=== PATIENT | female | born 1985 | race Caucasian/White ===

== ENCOUNTER 2019-12-06 16:09 | Emergency (ER) | payer OTHER ==
[~2019-12-06] VITALS: Ht 162.6 cm; Wt 50.3 kg
--- NOTE | 2019-12-06 16:09 | NUR ---
PT [facility]IB[facility] 89 AND [employer] C/O METH OD. PT IS AAOX2, NOT IN RESPIRATORY DISTRESS, HOOKED TO HEAD OF DIGITAL ADVERTISING & INTEGRATION, KEPT RESTED AND COMFORTABLE. WILL CONTINUE TO MONITOR.
[2019-12-06] MEDS ORDERED: LORAZEPAM 1 MG TABLET ONE ×2 (16:25→17:42)
--- NOTE | 2019-12-06 16:25 | NUR ---
SEEN AND EXAMINED BY NGOZI AYALA NP.
[2019-12-06] MEDS ORDERED: OLANZAPINE 5 MG TABLET ONE (16:30)
[2019-12-06] MEDS ORDERED: OLANZAPINE 5 MG TABLET PO ONE (16:30)
[2019-12-06] MEDS ORDERED: LORAZEPAM 1 MG TABLET PO ONE ×2 (16:30→18:00)
--- NOTE | 2019-12-06 16:34 | NUR ---
ER PHLEB AT BEDSIDE FOR BLOOD DRAW.
--- NOTE | 2019-12-06 16:50 | NUR ---
URINE SPECIMEN COLLECTED AND SENT TO LAB.
[2019-12-06 16:53] LABS: BASOPHILS % (AUTO) 0.2 % (0.0-2.0); EOSINOPHILS % (AUTO) 0.7 % (0.0-6.0); HEMATOCRIT 44 % (33-45); HEMOGLOBIN 14.2 g/dL (11.5-14.8); LYMPHOCYTES # (AUTO) 2.2 /CMM (0.8-4.8); LYMPHOCYTES % (AUTO) 20.7 % (20.0-44.0); MEAN CORPUSCULAR HGB CONC 33 g/dl (31.0-36.0); MEAN CORPUSCULAR VOLUME 88 fL (82-100); MONOCYTES # (AUTO) 1.1 /CMM (0.1-1.30); MONOCYTES % (AUTO) 10.1 % (2.0-12.0); NEUTROPHILS # (AUTO) 7.2 /CMM (1.8-8.9); NEUTROPHILS % (AUTO) 68.3 % (43.0-81.0); PLATELET COUNT (AUTO) 332 /CMM (150-450); RED BLOOD CELL COUNT(AUTO) 4.94 MIL/uL (4.0-5.2); WHITE BLOOD COUNT (AUTO) 10.5 K/uL (4.3-11.0)
[2019-12-06 17:03] LABS: APPEARANCE,URINE Cloudy (CLEAR); BILIRUBIN,URINE SMALL (NEGATIVE); BLOOD, URINE Moderate Ery/uL (NEGATIVE); COLOR,URINE Amber (YELLOW); KETONES,URINE Trace (NEGATIVE); LEUKOCYTE ESTERASE ,URINE Small (NEGATIVE); NITRITE, URINE Positive (NEGATIVE); PH,URINE 5.5 (5.0-8.0); PROTEIN,URINE 30 mg/dl (NEGATIVE); UGLUCOSE Negative (NEGATIVE); UROBILINOGEN,URINE 0.2 EU/dL (0.2)
[2019-12-06 17:06] LABS: ALANINE AMINOTRANSFERASE 16 U/L (12-78); ALBUMIN 4.2 g/dL (3.4-5.0); ALCOHOL, BLOOD < 3 mg/dL (0-0); ALKALINE PHOSPHATASE 60 U/L (46-116); ASPARTATE AMINOTRANSFERASE 15 U/L (15-37); BILIRUBIN,DIRECT 0.2 mg/dL (0.0-0.2); BILIRUBIN,TOTAL 0.7 mg/dL (0.2-1.0); CALCIUM, SERUM 9.5 mg/dL (8.5-10.1); CARBON DIOXIDE 24 mmol/L (21-32); CHLORIDE 101 mmol/L (98-107); CREATININE 0.9 mg/dL (0.6-1.3); GLUCOSE 94 mg/dL (74-106); POTASSIUM 3.6 mmol/L (3.5-5.1); SALICYLATE 0.7 mg/dL (2.8-20.0); SODIUM SERUM 136 mmol/L (136-145); TOTAL PROTEIN, SERUM 8.1 g/dL (6.4-8.2); UREA NITROGEN, BLOOD 18 mg/dL (7-18)
[2019-12-06 17:07] LABS: ACETAMINOPHEN < 2 ug/ml (10-30)
[2019-12-06 17:18] LABS: BACTERIA,URINE Many /HPF (None Seen); SQUAMOUS EPITHELIAL CELL,UR Few /HPF (None Seen)
[2019-12-06] MEDS ORDERED: CEPHALEXIN MONOHYDRATE 500 MG CAPSULE PO ONE ×2 (17:30→17:35)
--- NOTE | 2019-12-06 19:31 | NUR ---
PATIENT IS AWAKE. TALKING TO SELF. AAOX4. NO SOB. BREATHING EVENLY AND UNLABORED ON ROOM AIR. CONNECTED TO THE MONITOR. SITTER AT BEDSIDE.
[2019-12-06] MEDS ORDERED: LORAZEPAM INJ 2 MG/ML VIAL ONE (21:02)
[2019-12-06] MEDS ORDERED: OLANZAPINE 10 MG VIAL IM ONE ×2 (21:03→21:30)
[2019-12-06] MEDS ORDERED: LORAZEPAM INJ 2 MG/ML VIAL IM ONE (21:30)
[2019-12-07] MEDS ORDERED: ACETAMINOPHEN 325 MG TABLET PO PRN
[2019-12-07] MEDS ORDERED: ONDANSETRON HCL/PF 4 MG/2 ML VIAL IVP PRN
[2019-12-07] MEDS ORDERED: MAGNESIUM HYDROXIDE 30 ML UDC PO PRN
[2019-12-07] MEDS ORDERED: MAG HYDROX/AL HYDROX/SIMETH 30 ML UDC PO PRN
[2019-12-07] MEDS ORDERED: Z GUARD REMEDY 2 OZ OINT TP PRN
--- NOTE | 2019-12-07 01:27 | NUR ---
PATIENT IS SLEEPING. EASILY AROUSABLE THROUGH TACTILE AND VERBAL STIMULI. CONNECTED TO THE MONITOR. BREATHING EVENLY AND UNLABORED ON ROOM AIR. SITTER AT BEDSIDE.
[2019-12-07] MEDS ORDERED: IV NS 0.9% 1,000 ML IV PRN ×2 (01:40)
--- NOTE | 2019-12-07 04:22 | NUR ---
PATIENT STATES, "I WANT TO LEAVE". PATIENT IS AMBULATORY WITH A STEADY GAIT. PATIENT DENIES SUICIDAL IDEATION AND HOMICIDAL IDEATION. PATIENT STATES, "I DIDN'T TAKE ENOUGH DRUGS".
--- NOTE | 2019-12-07 04:23 | NUR ---
Patient discharged to home in stable condition. Written and verbal after care instructions given. Patient verbalizes understanding of instruction.
[2019-12-07 05:11] VITALS: BP 118/69
[2019-12-07] MEDS ORDERED: PANTOPRAZOLE 40 MG TABLET.DR PO SCH (07:30)
[2019-12-07] MEDS ORDERED: CEPHALEXIN MONOHYDRATE 500 MG CAPSULE PO SCH (09:00)
== END 2019-12-07 05:12 | disposition home or self-care (01) ==
LOC: EDUNIT# 16:09 → EDBD 16:14 → ER 16:14
DX: F15.10 Other stimulant abuse, uncomplicated (principal); N39.0 Urinary tract infection, site not specified; R00.0 Tachycardia, unspecified; R41.82 Altered mental status, unspecified
CPT/HCPCS: 36415; 80048; 80076; 80305; 80307; 80329; 81001; 84703; 85025; 87077; 87086; 87186; 93005; 96372 ×2; 99285; G0480; J2060; J3490; 81000-TC

== ENCOUNTER 2020-12-18 05:39 | Emergency (ER) | payer SELFPAY ==
[~2020-12-18] VITALS: Ht 165.1 cm; Wt 59.0 kg
[2020-12-18 06:46] VITALS: BP 134/82
--- NOTE | 2020-12-18 06:47 | NUR ---
URINE SENT TO LAB
[2020-12-18] MEDS ORDERED: IV NS 0.9% 1,000 ML BAG IV ONE (07:00)
[2020-12-18] MEDS ORDERED: ONDANSETRON HCL/PF 4 MG/2 ML VIAL IVP ONE (07:00)
[2020-12-18] MEDS ORDERED: LORAZEPAM INJ 2 MG/ML VIAL IV ONE (07:00)
--- NOTE | 2020-12-18 07:02 | NUR ---
Patient walked in to ED, c/o abd. pain, "states I ate a banana 1 month ago".
--- NOTE | 2020-12-18 07:07 | NUR ---
PT REFUSED EKG. AWARE
--- NOTE | 2020-12-18 07:10 | NUR ---
IV insertion unsuccessful, attempted x 3.
[2020-12-18] MEDS ORDERED: LORAZEPAM INJ 2 MG/ML VIAL ONE (07:19)
--- NOTE | 2020-12-18 07:20 | NUR ---
Pt declined IV insertion & blood draw.
[2020-12-18] MEDS ORDERED: LORAZEPAM INJ 2 MG/ML VIAL IM ONE (07:30)
--- NOTE | 2020-12-18 07:56 | NUR ---
patient refused EKG MD notified and aware.
--- NOTE | 2020-12-18 07:57 | NUR ---
Patient eloped from facility. ER MD notified.
[2020-12-18 08:14] LABS: BILIRUBIN,URINE SMALL (NEGATIVE); COLOR,URINE YELLOW (YELLOW); LEUKOCYTE ESTERASE ,URINE NEGATIVE (NEGATIVE); NITRITE, URINE NEGATIVE (NEGATIVE); PROTEIN,URINE NEGATIVE (NEGATIVE); UGLUCOSE NEGATIVE (NEGATIVE); UROBILINOGEN,URINE 0.2 EU/dL (0.2)
[2020-12-18 08:40] LABS: BACTERIA,URINE Few /HPF (None Seen); SQUAMOUS EPITHELIAL CELL,UR Moderate /HPF (None Seen)
[2020-12-18 08:41] LABS: MUCUS,URINE Few /LPF (None Seen)
== END 2020-12-18 07:57 | disposition left against medical advice (07) ==
LOC: ER 05:54
DX: R11.10 Vomiting, unspecified (principal); R00.0 Tachycardia, unspecified; F41.9 Anxiety disorder, unspecified; Z59.00 Homelessness unspecified
CPT/HCPCS: 80307; 81001; 93005; 96372; 99284; J2060